=== PATIENT | female | born 1970 | race Caucasian/White ===

== ENCOUNTER 2021-09-25 08:00 | Outpatient (CLI) | payer OTHER ==
--- NOTE | 2021-09-25 13:03 | XRAY Report ---
PROCEDURE: Hand 3 View RT INDICATIONS: PAIN IN JOINTS OF RIGHT HAND TECHNIQUE: 3 views of the hand(s) acquired. COMPARISON: None FINDINGS: Bones: No fractures or dislocations. No suspicious bony lesions. No osseous erosions. No periartic ular osteopenia. Soft tissues: No suspicious soft tissue calcifications. IMPRESSION: No osseous lesion. If symptoms and/or clinical concern for pathology persists, further assessment wit h repeat plain film radiographs (7-10 days) or advanced imaging (CT, MR, bone scan) should be conside red. Reviewed by: Edith Galarza MD, PhD on 09/25/2021 1:02 PM PDT Approved by: Edith Galarza MD, PhD on 09/25/2021 1:02 PM PDT Station ID: [id number]
== END 2021-09-25 23:59 | disposition home or self-care (01) ==
LOC: DI.N 08:00
PROVIDERS: ATTEND Nurse Practitioner Family
DX: M25.541 Pain in joints of right hand (principal)

== ENCOUNTER 2023-06-30 10:46 | Outpatient (CLI) | payer BC ==
[2023-06-30 11:08] LABS: BASOPHILS # (AUTO) 0.1 10^3/uL (0.0-0.1); BASOPHILS % (AUTO) 0.8 %; EOSINOPHILS # (AUTO) 0.7 10^3/uL (0.0-0.7); EOSINOPHILS % (AUTO) 7.8 %; HCT - HEMATOCRIT 49.3 % (37.0-47.0); HGB - HEMOGLOBIN 16.3 g/dL (12.0-16.0); LYMPHOCYTES # (AUTO) 2.3 10^3/uL (1.5-3.5); LYMPHOCYTES % (AUTO) 25.9 %; MEAN CORPUSCULAR HEMOGLOBIN 29.6 pg (27.0-31.0); MEAN CORPUSCULAR HGB CONC 33.1 g/dL (32.0-36.0); MEAN CORPUSCULAR VOLUME 89.6 fL (81.0-99.0); MEAN PLATELET VOLUME 11.6 fL (7.9-10.8); MONOCYTES # (AUTO) 0.5 10^3/uL (0.0-1.0); MONOCYTES % (AUTO) 5.6 %; NEUTROPHILS # (AUTO) 5.3 10^3/uL (1.5-6.6); NEUTROPHILS % (AUTO) 59.7 %; PLT - PLATELET COUNT 218 10^3/uL (130-450); RED CELL DISTRIBUTION WIDTH 14.4 % (12.0-15.0)
[2023-06-30 11:19] LABS: ALBUMIN 4.6 g/dL (3.2-5.5); ALBUMIN/GLOBULIN RATIO 1.8 (1.0-2.2); ALKALINE PHOSPHATASE 97 IU/L (42-121); ALT ALANINE AMINOTRANSFERASE 15 IU/L (10-60); AST ASPARTATE AMINOTRANSFERASE 15 IU/L (10-42); BILIRUBIN,TOTAL 0.5 mg/dL (0.2-1.0); BUN - BLOOD UREA NITROGEN 16 mg/dL (6-20); CALCIUM 10.1 mg/dL (8.5-10.3); CARBON DIOXIDE - CO2 28 mmol/L (21-32); CHLORIDE 106 mmol/L (101-111); CHOL/HDL RATIO 4.3 (<4.4); CHOLESTEROL 183 mg/dL; CREATININE 0.7 mg/dL (0.6-1.3); GFR - MDRD 88 (>89); GLUCOSE 98 mg/dL (74-104); HDL CHOLESTEROL 43 mg/dL; LDL CHOLESTEROL,CALCULATED 109 mg/dL; LDL/HDL RATIO 2.5 (<4.4); POTASSIUM 4.6 mmol/L (3.5-4.5); SODIUM 138 mmol/L (135-145); TOTAL PROTEIN 7.1 g/dL (6.4-8.9); TRIGLYCERIDES 155 mg/dL (48-352); VLDL CHOLESTEROL 31 mg/dL
== END 2023-06-30 10:47 | disposition home or self-care (01) ==
LOC: LAB 10:46
PROVIDERS: ATTEND Internal Medicine
DX: N83.209 Unspecified ovarian cyst, unspecified side (principal); Z13.6 Encounter for screening for cardiovascular disorders; S69.90XS Unspecified injury of unspecified wrist, hand and finger(s), sequela
CPT/HCPCS: 36415; 80053; 80061; 83721; 84443; 85025

== ENCOUNTER 2023-08-13 14:49 | Outpatient (CLI) | payer BC ==
--- NOTE | 2023-08-14 17:17 | Ultrasound Report ---
PROCEDURE: Pelvic w/Transvaginal INDICATIONS: OVARIAN CYST TECHNIQUE: Real-time scanning was performed of the pelvic organs, with image documentation. Additional endovagi nal scanning was necessary due to incomplete visualization of the adnexal and endometrial structures by transabdominal scanning. COMPARISON: Pelvic ultrasound 09/26/2013 FINDINGS: Uterus: Uterus is anteverted and normal in size at 7.6 x 3.6 x 4.5 cm. The myometrium is homogeneou s. The endometrium measures 3 mm in combined thickness. Ovaries: The right ovary measures 2.9 x 1.7 x 1.8 cm, with a calculated ovarian volume of 4.6 cc. T he left ovary is not visualized. Adnexal regions are unremarkable. Other: No pathologic free abdominal or pelvic fluid. IMPRESSION: No visualized right ovarian cyst. Left ovary is not visualized. Reviewed by: Violette Mcneal MD on 08/14/2023 5:15 PM PDT Approved by: Violette Mcneal MD on 08/14/2023 5:15 PM PDT Station ID: [id number]
== END 2023-08-13 14:50 | disposition home or self-care (01) ==
LOC: DI 14:49
PROVIDERS: ATTEND Internal Medicine
DX: N83.209 Unspecified ovarian cyst, unspecified side (principal)

== ENCOUNTER 2023-09-06 08:42 | Outpatient (CLI) | payer BC ==
--- NOTE | 2023-09-06 10:50 | XRAY Report ---
PROCEDURE: Wrist 3+V RT INDICATIONS: PAIN IN RIGHT WRIST/HAND JOINTS TECHNIQUE: 3 views of the wrist were acquired. COMPARISON: None. FINDINGS: Bones: Minimal radiocarpal and STT degenerative changes. No acute displaced fracture or dislocation. Soft tissues: No suspicious calcifications. IMPRESSION: Minimal degenerative changes of the radiocarpal and STT joints. No acute radiographic abnormality. If there is high concern for further derangement, consider MRI evaluation. Reviewed by: Andres Bernabe MD on 09/06/2023 10:49 AM PDT Approved by: Andres Bernabe MD on 09/06/2023 10:49 AM PDT Station ID: [id number]
--- NOTE | 2023-09-06 10:51 | XRAY Report ---
PROCEDURE: Hand 3+V RT INDICATIONS: PAIN IN RIGHT WRIST/HAND JOINTS TECHNIQUE: 3 views of the hand(s) acquired. COMPARISON: None. FINDINGS: Bones: No acute displaced fracture or dislocation. Soft tissues: No suspicious calcifications. IMPRESSION: No acute radiographic abnormality. If there is high concern for further derangement, consider MRI michelle luation. Reviewed by: Andres Bernabe MD on 09/06/2023 10:50 AM PDT Approved by: Andres Bernabe MD on 09/06/2023 10:50 AM PDT Station ID: [id number]
== END 2023-09-06 08:43 | disposition home or self-care (01) ==
LOC: DI 08:42
PROVIDERS: ATTEND Physician Assistant Surgical
DX: M25.541 Pain in joints of right hand (principal); M19.031 Primary osteoarthritis, right wrist